=== PATIENT | male | born 1980 | race Caucasian/White ===

== ENCOUNTER 2016-12-31 00:16 | Emergency (ER) | payer OTHER, SELFPAY ==
[2016-12-31 01:27] LABS: Troponin I 0.048 ng/mL (< 0.028)
[2016-12-31 01:58] LABS: #Basophils 0.1 thou/uL (0.0-0.2); #Eosinphils 0.1 thou/uL (0.0-0.7); #Monocytes 0.7 thou/uL (0.11-0.59); #Neutrophils 6.7 thou/uL (1.40-6.50); %Basophils 0.8 % (0.0-1.0); %Eosinophils 0.8 % (0.0-10.0); %Lymphocytes 21.1 % (21.0-51.0); %Monocytes 7.5 % (0.0-10.0); Hematocrit 46.7 % (42.0-52.0); White Blood Cell (WBC) Count 9.6 thou/uL (4.8-10.8)
[2016-12-31 02:00] LABS: ALT (SGPT) 33 U/L (8-55); AST (SGOT) 32 U/L (5-34); Alkaline Phosphatase 61 U/L (40-150); Anion Gap 16 mmol/L (10-20); BUN (Urea Nitrogen) 11 mg/dL (8.9-20.6); Bilirubin, Total 0.5 mg/dL (0.2-1.2); Calc. Creatinine Clearance 0 mL/min (70-130); Calcium 9.7 mg/dL (7.8-10.44); Carbon Dioxide 25 mmol/L (22-29); Chloride 98 mmol/L (98-107); Estimated GFR-MDRD 62; Globulin 3.8 g/dL (2.4-3.5); Protein, Total 8.5 g/dL (6.0-8.3)
[2016-12-31 04:22] LABS: Troponin I 0.038 ng/mL (< 0.028)
--- NOTE | 2016-12-31 08:15 | RAD ---
AP VIEW CHEST: HISTORY: Chest pain. FINDINGS: AP view chest is obtained on 12/31/16. Comparison is made to previous exam from 04/12/16. AP view chest demonstrates the lungs to be well aerated. No evidence of active intrathoracic diseas e is seen. No evidence of effusions, pneumonia, or pneumothorax is seen. IMPRESSION: Unremarkable AP view chest. POS: [facility]
--- NOTE | 2017-01-04 14:20 | EKG ---
Test Reason : Blood Pressure : / mmHG Vent. Rate : 097 BPM Atrial Rate : 097 BPM P-R Int : 154 ms QRS Dur : 084 ms QT Int : 380 ms P-R-T Axes : 051 022 014 degrees QTc Int : 482 ms Normal sinus rhythm Biatrial enlargement Septal infarct , age undetermined No STEMI Abnormal ECG Confirmed by ANA CRISTINA BASS, TEDDY Padilla ([id number]), avid editor GABRIEL HARRIS ([id number]) on 01/04/2017 2:19:55 PM Referred By: Confirmed By:TEDDY DE LA PAZ MD
== END 2016-12-31 05:30 | disposition home or self-care (01) ==
LOC: ERS 00:16
DX: F14.10 Cocaine abuse, uncomplicated (principal); R07.9 Chest pain, unspecified; J45.909 Unspecified asthma, uncomplicated; F17.200 Nicotine dependence, unspecified, uncomplicated
CPT/HCPCS: 36415; 71010; 80053; 82553; 84484; 85025; 93005; 96360

== ENCOUNTER 2017-01-04 13:13 | Inpatient (IN) | payer BC, SELFPAY ==
[2017-01-04 13:39] LABS: #Basophils 0.1 thou/uL (0.0-0.2); #Eosinphils 0.1 thou/uL (0.0-0.7); #Lymphocytes 2.1 thou/uL (1.20-3.40); #Monocytes 0.8 thou/uL (0.11-0.59); #Neutrophils 9.8 thou/uL (1.40-6.50); %Basophils 0.7 % (0.0-1.0); %Eosinophils 0.6 % (0.0-10.0); %Lymphocytes 16.1 % (21.0-51.0); %Monocytes 6.5 % (0.0-10.0); Hematocrit 43.1 % (42.0-52.0); Mean Platelet Volume 6.3 fL (7.4-10.4); Red Blood Cell (RBC) Count 4.74 mill/uL (4.70-6.10); White Blood Cell (WBC) Count 12.9 thou/uL (4.8-10.8)
[2017-01-04 14:11] LABS: Troponin I 0.042 ng/mL (< 0.028)
[2017-01-04 14:14] LABS: ALT (SGPT) 29 U/L (8-55); AST (SGOT) 30 U/L (5-34); Alkaline Phosphatase 58 U/L (40-150); Anion Gap 15 mmol/L (10-20); BUN (Urea Nitrogen) 10 mg/dL (8.9-20.6); Bilirubin, Total 0.4 mg/dL (0.2-1.2); CK (CPK) 1049 U/L (30-200); Calc. Creatinine Clearance 0 mL/min (70-130); Calcium 9.7 mg/dL (7.8-10.44); Carbon Dioxide 24 mmol/L (22-29); Chloride 98 mmol/L (98-107); Estimated GFR-MDRD 68; Globulin 3.4 g/dL (2.4-3.5); Lipase 54 U/L (8-78); Protein, Total 7.7 g/dL (6.0-8.3)
[2017-01-04] MEDS ORDERED: Lorazepam 2 MG/ML VIAL ONE (14:21)
[2017-01-04] MEDS ORDERED: Oxymetazoline HCl 0.05% ( 15 ML ) ONE (14:33)
[2017-01-04 14:45] LABS: Magnesium 1.8 mg/dL (1.6-2.6); Phosphorus 2.6 mg/dL (2.3-4.7)
[2017-01-04] MEDS ORDERED: Nitroglycerin 2% Ointment 1 INCH/1 GM Packet ONE (14:56)
--- NOTE | 2017-01-04 15:11 | RAD ---
SINGLE VIEW OF THE CHEST: COMPARISON: 12/31/16. HISTORY: Chest pain. Cocaine use last night. FINDINGS: Single view of the chest shows a normal sized cardiomediastinal silhouette. There is no evidence of consolidation, mass, or pleural effusion. The bones are unremarkable. IMPRESSION: No evidence of acute cardiopulmonary disease. POS: [facility]
[2017-01-04 15:18] LABS: Bilirubin Negative (Negative); Blood, Urine Negative (Negative); Glucose, Urine (Dipstick) Negative (Negative); Ketone, Urine Negative (Negative); Nitrite Negative (Negative); Protein, Urine (Dipstick) Negative (Neg-Trace); Urobilinogen 0.2 mg/dL (0.2-1.0)
[2017-01-04 15:27] LABS: Amphetamine Not Detected (NotDetected); Methadone Not Detected (NotDetected); Methamphetamine Not Detected (NotDetected)
[2017-01-04 15:57] VITALS: BMI 31.6
[2017-01-04] MEDS ORDERED: Senokot 8.6 MG TAB PO PRN (16:15)
[2017-01-04] MEDS ORDERED: Nitroglycerin 0.4 MG TAB (25 Tab Bottle) PO PRN (16:15)
[2017-01-04] MEDS ORDERED: Ondansetron HCl/PF 4 MG/2 ML Vial IVP PRN (16:15)
[2017-01-04] MEDS ORDERED: Sodium Chloride 0.9% 1,000 ML IV SCH (16:15)
[2017-01-04] MEDS ORDERED: Calcium Carbonate 500 MG ChewTAB PO PRN (16:15)
[2017-01-04] MEDS ORDERED: Acetaminophen 325 MG TAB PO PRN (16:15)
[2017-01-04] MEDS ORDERED: Milk Of Magnesia 30 ML UDCUP PO PRN (16:15)
[2017-01-04] MEDS ORDERED: Aspirin 325 MG TAB PO SCH (16:15)
[2017-01-04] MEDS ORDERED: Ondansetron ODT 4 MG TAB PO PRN (16:15)
[2017-01-04] MEDS ORDERED: cloNIDine HCl 0.1 MG TAB PO PRN (16:19)
[2017-01-04] MEDS ORDERED: Lorazepam 1 MG TAB PO SCH ×2 (16:30→21:00)
[2017-01-04] MEDS ORDERED: Sodium Chloride 0.65% Nasal 44 ML BOT EA NARE PRN (16:40)
[2017-01-04 17:06] LABS: Troponin I 0.063 ng/mL (< 0.028)
--- NOTE | 2017-01-04 18:44 | HP ---
DATE OF ADMISSION: 01/04/2017 PRIMARY CARE PHYSICIAN: Sonny Villa M.D. REASON FOR COMPLAINT: Chest discomfort. HISTORY OF PRESENT ILLNESS: Patient is a 36-year-old male who presented to the emergency room with above complaints. Over the last 24-48 hours, patient has intermittent chest discomfort associated with diaphoresis and dizziness. He felt lightheaded without any syncope. He also had some palpitations. The patient admitted using cocaine last night. His chest pain got worse today for which he was brought to the emergency room for evaluation. In the emergency room, his initial vital signs showed temperature 98.4, respirations 20, pulse of 97, blood pressure of 167/104 with O2 saturation of 96 % on room air. His initial EKG showed sinus rhythm without significant ST-T wave changes. His troponins were in the indeterminate range. He received nitro patch with Ativan and IV fluids in the emergency room. PAST MEDICAL HISTORY: 1. History of renal cancer status post partial nephrectomy in 2016. 2. Chronic low back pain. 3. History of cardiac murmur. 4. Asthma. PAST SURGICAL HISTORY: 1. Tonsillectomy. 2. Partial right nephrectomy. ALLERGIES: Patient denies any drug allergies. CURRENT HOME MEDICATIONS: Albuterol inhaler as needed, Afrin nasal sprays as needed. SOCIAL HISTORY: Patient currently lives at home with his family. He currently uses vapor tobacco. Drinks alcohol socially. Abuses cocaine 2 times a month. FAMILY HISTORY: Negative for premature coronary artery disease. REVIEW OF SYSTEMS: The following complete review of systems was negative, unless otherwise mentioned in the HPI or below: Constitutional: Weight loss or gain, ability to conduct usual activities. Skin: Rash, itching. Eyes: Double vision, pain. ENT/Mouth: Nose bleeding, neck stiffness, pain, tenderness. Cardiovascular: Palpitations, dyspnea on exertion, orthopnea. Respiratory: Shortness of breath, wheezing, cough, hemoptysis, fever or night sweats. Gastrointestinal: Poor appetite, abdominal pain, heartburn, nausea, vomiting, constipation, or diarrhea. Genitourinary: Urgency, frequency, dysuria, nocturia. Musculoskeletal: Pain, swelling. Neurologic/Psychiatric: Anxiety, depression. Allergy/Immunologic: Skin rash, bleeding tendency. PHYSICAL EXAMINATION: VITAL SIGNS: As discussed above. GENERAL: A 36-year-old male, somewhat anxious appearing, in no apparent distress. HEENT: Head is atraumatic, normocephalic, sclerae are anicteric, dry mucous membranes. No oral lesion. NECK: Supple, no JVD appreciated. No carotid bruit. LUNGS: Clear to auscultation bilaterally. HEART: S1 and S2 present. Regular rate and rhythm. No rubs or gallops appreciated, 2/6 systolic murmur over the mitral area. ABDOMEN: Soft, nontender, bowel sounds present. EXTREMITIES: No edema or calf tenderness. NEUROLOGIC: Grossly nonfocal, moves all four extremities. PSYCHIATRY: Alert, awake, oriented x3. SKIN: Warm and dry. LYMPH NODES: No palpable lymph nodes in the neck. PERIPHERAL VASCULAR: Radial pulses palpable bilaterally. MUSCULOSKELETAL: No joint swelling or tenderness. LABORATORY DATA AND X-RAY FINDINGS: 1. CBC showed WBC of 12.9 with hemoglobin 14.4. 2. Chemistries showed sodium 133, potassium 3.9, chloride 98, bicarbonate 24, BUN of 10, creatinine 1.22. 3. CK was 1049. 4. CK-MB 7.9 with troponin of 0.042. Urine drug screen was positive for cocaine. Urinalysis was negative. 5. Chest x-ray by my review was negative for infiltrate. 6. EKG by my review as discussed above. IMPRESSION: 1. Chest discomfort secondary to cocaine abuse. 2. Elevated troponin secondary to #1. 3. Abdominal rhabdomyolysis secondary to polysubstance abuse. 4. Tobacco dependence. 5. Obesity with a body mass index of 31.6 6. Mild hyponatremia, probably secondary to dehydration. 7. Chronic low back pain. Plan of care was discussed with the patient and he stated understanding. PLAN: The patient will be monitored on the telemetry unit. We will continue IV fluids with nitro patch. We will add Ativan 3 times daily scheduled for now. Nebulizer treatment as needed. Consult Cardiology in a.m. We will repeat CK in a.m. Continue his pulse oximetry while on Ativan. No statins due to elevated CK. Plan of care was discussed with the patient. He stated understanding. MTDD
[2017-01-04 19:45] LABS: Troponin I 0.056 ng/mL (< 0.028)
[2017-01-04] MEDS ORDERED: Nitroglycerin 2% Ointment 1 INCH/1 GM Packet TOP SCH (21:00)
[2017-01-04] MEDS: Docusate 100 MG CAP PO SCH (22:38)
[2017-01-04] MEDS: Famotidine 20 MG TAB PO SCH (22:38)
[2017-01-04] MEDS: Sodium Chloride 0.9% 1,000 ML IV SCH (22:47)
[2017-01-04] MEDS: Nitroglycerin 2% Ointment 1 INCH/1 GM Packet TOP SCH (23:01)
[2017-01-04] MEDS: Ipratropium Bromide 0.03% Nasal Inhaler 30 ml Bottle EA NARE SCH (23:02)
[2017-01-05] MEDS: Sodium Chloride 0.9% 1,000 ML IV SCH ×3 (01:36→16:23)
[2017-01-05 05:53] LABS: #Basophils 0.1 thou/uL (0.0-0.2); #Eosinphils 0.3 thou/uL (0.0-0.7); #Lymphocytes 3.1 thou/uL (1.20-3.40); #Monocytes 0.9 thou/uL (0.11-0.59); #Neutrophils 3.3 thou/uL (1.40-6.50); %Basophils 1.1 % (0.0-1.0); %Eosinophils 4.1 % (0.0-10.0); %Lymphocytes 40.2 % (21.0-51.0); %Monocytes 12.1 % (0.0-10.0); Hematocrit 38.8 % (42.0-52.0); Mean Platelet Volume 6.8 fL (7.4-10.4); Red Blood Cell (RBC) Count 4.17 mill/uL (4.70-6.10); White Blood Cell (WBC) Count 7.7 thou/uL (4.8-10.8)
[2017-01-05 06:11] LABS: Anion Gap 10 mmol/L (10-20); BUN (Urea Nitrogen) 9 mg/dL (8.9-20.6); CK (CPK) 673 U/L (30-200); Calc. Creatinine Clearance 150 mL/min (70-130); Calcium 8.9 mg/dL (7.8-10.44); Carbon Dioxide 26 mmol/L (22-29); Cholesterol 187 mg/dl (< 200 Desired); Estimated GFR-MDRD 74; LDL Cholesterol, Calculated 117 mg/dL
[2017-01-05 06:14] LABS: Chloride 109 mmol/L (98-107)
[2017-01-05] MEDS: Nitroglycerin 2% Ointment 1 INCH/1 GM Packet TOP SCH (06:14)
[2017-01-05] MEDS ORDERED: Lorazepam 0.5 MG TAB PO PRN (06:47)
[2017-01-05] MEDS: Aspirin 325 MG TAB PO SCH (08:14)
[2017-01-05] MEDS: Famotidine 20 MG TAB PO SCH ×2 (08:14→20:36)
[2017-01-05] MEDS: Docusate 100 MG CAP PO SCH ×2 (08:15→20:33)
[2017-01-05] MEDS ORDERED: Fluticasone Propionate Nasal Spray 16 gm Bottle NASAL SCH (09:00)
--- NOTE | 2017-01-05 12:01 | PDOC.PN ---
- Subjective Encounter Start Date: 01/05/17 Encounter Start Time: 10:00 Patient seen and examined. No new complaints. No overnight events - Objective Resuscitation Status: Resuscitation Status FULL:Full Resuscitation MAR Reviewed: Yes Vital Signs & Weight: Vital Signs (12 hours) Temp Pulse Resp BP BP Pulse Ox 01/05/17 11:41 97.9 F 77 17 121/59 L 92 L 01/05/17 08:00 97.7 F 76 16 110/51 L 92 L 01/05/17 04:00 97.4 F L 67 18 132/59 L 90 L 01/05/17 00:00 98.0 F 69 20 107/54 L 92 L Weight Weight 254 lb 11.2 oz I&O: 01/04/17 01/05/17 01/06/17 06:59 06:59 06:59 Intake Total 2690 Output Total 2300 Balance 390 Result Diagrams: 01/05/17 05:24 01/05/17 05:24 EKG Reviewed by me: Yes (Tele SR) Phys Exam - Physical Examination Constitutional: NAD Respiratory: no wheezing, no rhonchi Cardiovascular: RRR, no rub Gastrointestinal: soft, non-tender, positive bowel sounds Musculoskeletal: no edema Neurological: moves all 4 limbs Dx/Plan - Plan IMPRESSION: 1. Chest discomfort secondary to cocaine abuse. 2. Elevated troponin secondary to #1. 3. Abdominal rhabdomyolysis secondary to polysubstance abuse. 4. Tobacco dependence. 5. Obesity with a body mass index of 31.6 6. Mild hyponatremia, probably secondary to dehydration. 7. Chronic low back pain. PLAN: * DC NTG patch * Cont ASA * No Statins due to elevated CK * Reduce IVF to 100 ml/hr * Await Cardio input * Cont tele monitoring * Laboratory Tests 01/04/17 01/04/17 01/05/17 15:00 19:09 05:24 Creatine Kinase 673 H Troponin I 0.056 H Triglycerides 168 H Cholesterol 187 LDL Cholesterol, Calc 117 HDL Cholesterol 36 U Cocaine Metab Screen Detected H Review of Systems - Review of Systems Constitutional: negative: Fever, Chills, Sweats, Weakness, Malaise, Other Respiratory: negative: Cough, Dry, Shortness of Breath, Hemoptysis, SOB with Excertion, Pleuritic Pain, Sputum, Wheezing Cardiovascular: negative: Chest Pain, Palpitations, Orthopnea, Paroxysmal Noc. Dyspnea, Edema, Light Headedness, Other Gastrointestinal: negative: Nausea, Vomiting, Abdominal Pain, Diarrhea, Constipation, Melena, Hematochezia, Other Genitourinary: negative: Dysuria, Frequency, Incontinence, Hematuria, Retention , Other Neurological: negative: Weakness, Numbness, Incoordination, Change in Speech, Confusion, Seizures, Other - Medications/Allergies Allergies/Adverse Reactions: Allergies Allergy/AdvReac Type Severity Reaction Status Date / Time No Known Allergies Allergy Verified 01/04/17 16:11 Medications: Current Medications Acetaminophen (Tylenol) 650 mg PO Q4H PRN PRN Reason: Headache/Fever or Pain Albuterol/Ipratropium (Duoneb) 3 ml NEB [id number] PRN PRN Reason: SOB &/or Wheezing Last Admin: 01/04/17 17:31 Dose: 3 ml Aspirin (Aspirin) 325 mg PO DAILY [facility] Last Admin: 01/05/17 08:14 Dose: 325 mg Calcium Carbonate (Tums) 1,000 mg PO Q4H PRN PRN Reason: Heartburn or Indigestion Clonidine HCl (Catapres) 0.1 mg PO Q4H PRN PRN Reason: Systolic BP > 180/ DBP >100 Docusate Sodium (Colace) 100 mg PO BID [facility] Last Admin: 01/05/17 08:15 Dose: 100 mg Famotidine (Pepcid) 20 mg PO BID [facility] Last Admin: 01/05/17 08:14 Dose: 20 mg Sodium Chloride (Normal Saline 0.9%) 1,000 mls @ 100 mls/hr IV .Q10H [facility] Ipratropium [place] (Atrovent 0.03%) 0 ml EA NARE TID [facility] Last Admin: 01/04/17 23:02 Dose: 2 spr Lorazepam (Ativan) 0.5 mg PO Q6H PRN PRN Reason: Anxiety Magnesium Hydroxide (Milk Of Magnesium) 30 ml PO DAILYPRN PRN PRN Reason: Constipation Nitroglycerin (Nitrostat) 0.4 mg PO Q5MIN PRN PRN Reason: Chest Pain Ondansetron HCl (Zofran Odt) 4 mg PO Q6H PRN PRN Reason: Nausea/Vomiting Ondansetron HCl (Zofran) 4 mg IVP Q6H PRN PRN Reason: Nausea/Vomiting Senna (Senokot) 2 tab PO HSPRN PRN PRN Reason: Constipation Sodium Chloride (Flush - Normal Saline) 10 ml IVF PRN PRN PRN Reason: Saline Flush Last Admin: 01/04/17 22:48 Dose: 10 ml Sodium Chloride ([place] Nasal [place] 0.65%) 0 ml EA NARE TID PRN PRN Reason: Nasal Congestion
[2017-01-05] MEDS: Ipratropium Bromide 0.03% Nasal Inhaler 30 ml Bottle EA NARE SCH ×2 (19:57→20:37)
[2017-01-05] MEDS ORDERED: Enoxaparin Sodium 40 MG/0.4 ML SYRINGE SC SCH (21:00)
--- NOTE | 2017-01-05 23:33 | CON ---
DATE OF CONSULTATION: 01/05/2017 REFERRING PHYSICIAN: Jesus Griggs M.D. REASON FOR CONSULTATION: Chest pain. PRIMARY CARE PHYSICIAN: Dr. Villa. HISTORY OF PRESENT ILLNESS: Mr. Stephens is a 36-year-old gentleman, presenting to the emergency department complaining of chest discomfort. Chest discomfort occurred during the time th at he was using cocaine, which he does on a pretty routine basis. He reports using about 2 grams ea ch day and this is about the third day that he has been using. He felt associated lightheadedness a nd dizziness, but no overt syncope. His symptoms have resolved and he denies any exertional symptom s currently. Serial cardiac enzymes showed elevated total CK with increased CK-MB fraction and indeterminate trop onin elevations. PAST MEDICAL HISTORY: 1. Renal cell carcinoma, status post partial nephrectomy. 2. Chronic low back pain. 3. Asthma. PAST SURGICAL HISTORY: 1. Partial right nephrectomy. 2. Tonsillectomy. ALLERGIES: No known drug allergies. SOCIAL HISTORY: He lives with his family. He uses tobacco through vapor inhaler. He drinks alcoho l socially. He does use cocaine regularly, reporting 2 times a month, but when he does use, he uses 2+ grams each time. FAMILY HISTORY: Negative with respect to premature atherosclerosis. CURRENT MEDICATIONS: Albuterol as needed. REVIEW OF SYSTEMS: As per history of present illness. Remainder of 12 system review is negative. PHYSICAL EXAMINATION: VITAL SIGNS: Blood pressure 121/59, pulse 77 and regular, respiratory rate 17 and nonlabored, tempe rature 97.9, oxygen saturation 92% on room air. GENERAL: This is a well-developed, well-nourished 36-year-old gentleman, in no acute dist ress. He is alert and oriented x4. He answers questions appropriately. HEENT: The head was atraumatic, normocephalic. Pupils are equally round and reactive. Sclerae and conjunctivae are clear. There are no oral lesions. NECK: Supple, no JVD, thyromegaly, carotid bruits or lymphadenopathy appreciated. Trachea is midli ne. There is no nuchal rigidity. CHEST: Symmetrical inspiration and expiration. HEART: Regular rate and rhythm with a soft 1/6 systolic murmur at the apex of the right and left ax illa. PMI is nondisplaced, not enlarged. LUNGS: Clear to auscultation in all plata. No adventitious sounds appreciated. ABDOMEN: Soft, nontender, nondistended without mass or organomegaly. Bowel sounds are present in a ll 4 quadrants. No flank bruits auscultated. EXTREMITIES: 2+ pulses noted bilaterally. Upper and lower extremity strength 5/5 bilaterally. The re is no clubbing, cyanosis or edema. NEUROLOGIC: Grossly intact with no focal motor deficits appreciated. DATABASE: EKG reveals sinus rhythm with normal axis and intervals. LABORATORY DATA: CBC reveals a white count of 7, H\T\H of 12 and 38, platelet count 274,000. Diffe rential white blood cells normal. Red cell indices normocytic. Chemistries: Electrolytes are normal. BUN and creatinine of 9 and 1.1, GFR is estimated at 74. LF Ts are within normal limits. Total CK 104.9. CK-MB fraction 7.9. Indeterminate troponin elevation s with peak of 0.063, trending downward. His cholesterol is essentially normal. Toxicology screen does show positive cocaine metabolites. ASSESSMENT: 1. Active cocaine use/abuse. 2. Chest pain syndrome secondary to #1. 3. Elevated cardiac enzymes secondary to #1. RECOMMENDATIONS: 1. From a cardiac standpoint, he is stable and chest pain free. There is no overt indication for i nvasive or interventional evaluation at this time. He is symptom free currently and his elevated ca rdiac enzymes are likely secondary to intense vasospasm from high level use of cocaine. I have coun seled him on the importance of cessation of this very dangerous habit and he wishes to get some help with drug rehabilitation. 2. I would recommend case workers evaluate for the possibility of transfer to an inpatient unit due to the high level of usage that he volunteers on a regular basis. I appreciate the opportunity to participate.
[2017-01-05] MEDS ORDERED: traMADol HCl 50 MG TAB PO PRN (23:35)
[2017-01-06] MEDS: Sodium Chloride 0.9% 1,000 ML IV SCH ×2 (04:16→09:42)
[2017-01-06 05:54] LABS: Anion Gap 11 mmol/L (10-20); BUN (Urea Nitrogen) 7 mg/dL (8.9-20.6); CK (CPK) 477 U/L (30-200); Calc. Creatinine Clearance 159 mL/min (70-130); Calcium 9.3 mg/dL (7.8-10.44); Carbon Dioxide 24 mmol/L (22-29); Chloride 108 mmol/L (98-107); Estimated GFR-MDRD 79
[2017-01-06] MEDS: Docusate 100 MG CAP PO SCH (09:43)
[2017-01-06] MEDS: Famotidine 20 MG TAB PO SCH (09:43)
[2017-01-06] MEDS: Aspirin 325 MG TAB PO SCH (09:43)
--- NOTE | 2017-01-06 12:12 | DIS ---
DATE OF DISCHARGE: 01/06/2017 DISCHARGE DISPOSITION: Home. FOLLOWUP: 1. Follow up with primary care physician, Dr. Sonny Villa in 1 week. 2. Follow up with Cardiology, Dr. Pankaj Chavarria in 2-3 weeks. ALLERGIES: No known drug allergies. DISCHARGE MEDICATIONS: Aspirin 81 mg daily, albuterol inhaler as needed. The patient was seen and examined on the day of discharge. Denies any new complaints. No chest diane n, shortness of breath, palpitations. BRIEF HOSPITAL COURSE: The patient is a 36-year-old white male, who presented to the emergency room with chest discomfort. Please refer to the history and physical dated 01/04/2017 for further detai ls. The patient was admitted to the hospital with a diagnosis of chest discomfort, rule out acute trujillo ry syndrome. His maximum troponin was 0.063. His initial CK was 1049. Urine drug screen was posit aleks for cocaine. He was seen by Cardiology, Dr. Chavarria. He was placed on aspirin with nitro patch wi th benzodiazepines and IV fluids. An echocardiogram has been done and report is pending at this lizy e. The patient has been cleared by Cardiology for discharge. FINAL DIAGNOSES: 1. Chest discomfort, probably secondary to vasospasm from cocaine. 2. Elevated troponin secondary to #1. 3. Rhabdomyolysis secondary to polysubstance abuse. His CK today is 477. Repeat CK in 1 week is r ecommended. Primary care physician is advised to follow. 4. Dyslipidemia. Triglyceride was 168 with cholesterol 187, LDL 117 and HDL of 36. Lifestyle elisa fication was emphasized. No statins due to elevated CK. 5. Obesity with a BMI of 31.6. 6. Chronic low back pain. 7. Mild hyponatremia secondary to dehydration on admission, resolved. Plan of care was discussed with the patient, he stated understanding.
[2017-01-06] MEDS ORDERED: Mag-Al Plus 1200 MG/1200 MG/120 MG/30 ML UDCUP PO PRN (12:17)
[2017-01-06] MEDS ORDERED: Mag-Al 1200 mg/1200 mg/30 ML UDCUP PO PRN (12:17)
--- NOTE | 2017-01-06 12:21 | PDOC.PN ---
- Subjective Encounter Start Date: 01/06/17 Encounter Start Time: 12:19 Patient seen and examined. No new complaints. No overnight events. Feels gen weak - Objective Resuscitation Status: Resuscitation Status FULL:Full Resuscitation MAR Reviewed: Yes Vital Signs & Weight: Vital Signs (12 hours) Temp Pulse Resp BP Pulse Ox 01/06/17 08:07 96.1 F L 62 18 114/57 L 97 01/06/17 04:00 98.0 F 64 18 126/63 96 Weight Weight 254 lb 11.2 oz I&O: 01/05/17 01/06/17 01/07/17 06:59 06:59 06:59 Intake Total 2690 1700 Output Total 2300 2750 Balance 390 -1050 Result Diagrams: 01/05/17 05:24 01/06/17 04:56 EKG Reviewed by me: Yes (Tele SR) Phys Exam - Physical Examination Constitutional: NAD Respiratory: no wheezing, no rhonchi Cardiovascular: RRR, no rub Gastrointestinal: soft, non-tender, positive bowel sounds Musculoskeletal: no edema Neurological: non-focal, moves all 4 limbs Dx/Plan - Plan IMPRESSION: 1. Chest discomfort secondary to cocaine abuse. 2. Elevated troponin secondary to #1. 3. Abdominal rhabdomyolysis secondary to polysubstance abuse. 4. Tobacco dependence. 5. Obesity with a body mass index of 31.6 6. Mild hyponatremia, probably secondary to dehydration. 7. Chronic low back pain. PLAN: * Will d/w betting agency manager to assist with placement in rehab * Cont ASA * No Statins due to elevated CK * DC IVF * Cardio following * Cont tele monitoring Review of Systems - Review of Systems ENT: negative: Ear Pain, Ear Discharge, Nose Pain, Nose Discharge, Nose Congestion, Mouth Pain, Mouth Swelling, Throat Pain, Throat Swelling, Other Respiratory: negative: Cough, Dry, Shortness of Breath, Hemoptysis, SOB with Excertion, Pleuritic Pain, Sputum, Wheezing Gastrointestinal: negative: Nausea, Vomiting, Abdominal Pain, Diarrhea, Constipation, Melena, Hematochezia, Other - Medications/Allergies Allergies/Adverse Reactions: Allergies Allergy/AdvReac Type Severity Reaction Status Date / Time No Known Allergies Allergy Verified 01/04/17 16:11 Medications: Current Medications Acetaminophen (Tylenol) 650 mg PO Q4H PRN PRN Reason: Headache/Fever or Pain Al Hydroxide/Mg Hydroxide (Maalox) 30 ml PO Q6H PRN PRN Reason: Heartburn or Indigestion Al Hydroxide/Mg Hydroxide (Maalox Plus) 30 ml PO DAILY PRN PRN Reason: Dyspepsia Albuterol/Ipratropium (Duoneb) 3 ml NEB [id number] PRN PRN Reason: SOB &/or Wheezing Last Admin: 01/04/17 17:31 Dose: 3 ml Aspirin (Aspirin) 325 mg PO DAILY [facility] Last Admin: 01/06/17 09:43 Dose: 325 mg Calcium Carbonate (Tums) 1,000 mg PO Q4H PRN PRN Reason: Heartburn or Indigestion Last Admin: 01/06/17 12:02 Dose: 1,000 mg Clonidine HCl (Catapres) 0.1 mg PO Q4H PRN PRN Reason: Systolic BP > 180/ DBP >100 Docusate Sodium (Colace) 100 mg PO BID [facility] Last Admin: 01/06/17 09:43 Dose: 100 mg Enoxaparin Sodium (Lovenox) 40 mg SC 2100 [facility] Last Admin: 01/05/17 20:34 Dose: 40 mg Famotidine (Pepcid) 20 mg PO BID [facility] Last Admin: 01/06/17 09:43 Dose: 20 mg Sodium Chloride (Normal Saline 0.9%) 1,000 mls @ 100 mls/hr IV .Q10H [facility] Last Admin: 01/06/17 09:42 Dose: 1,000 mls Ipratropium [place] (Atrovent 0.03%) 0 ml EA NARE TID [facility] Last Admin: 01/05/17 20:37 Dose: 2 spr Lorazepam (Ativan) 0.5 mg PO Q6H PRN PRN Reason: Anxiety Last Admin: 01/06/17 03:55 Dose: 0.5 mg Magnesium Hydroxide (Milk Of Magnesium) 30 ml PO DAILYPRN PRN PRN Reason: Constipation Nitroglycerin (Nitrostat) 0.4 mg PO Q5MIN PRN PRN Reason: Chest Pain Last Admin: 01/06/17 03:55 Dose: 0.4 mg Ondansetron HCl (Zofran Odt) 4 mg PO Q6H PRN PRN Reason: Nausea/Vomiting Ondansetron HCl (Zofran) 4 mg IVP Q6H PRN PRN Reason: Nausea/Vomiting Senna (Senokot) 2 tab PO HSPRN PRN PRN Reason: Constipation Sodium Chloride (Flush - Normal Saline) 10 ml IVF PRN PRN PRN Reason: Saline Flush Last Admin: 01/04/17 22:48 Dose: 10 ml Sodium Chloride ([place] Nasal [place] 0.65%) 0 ml EA NARE TID PRN PRN Reason: Nasal Congestion Tramadol HCl (Ultram) 50 mg PO Q6H PRN PRN Reason: Pain >3 Last Admin: 01/05/17 23:55 Dose: 50 mg
[2017-01-06 16:29] VITALS: BP 126/68; TEMP 98.8
== END 2017-01-06 17:13 | disposition home or self-care (01) | DRG 897 ==
LOC: ERS 13:13 → 2NO 14:37
PROVIDERS: ADMIT Internal Medicine; ATTEND Internal Medicine
DX: F14.10 Cocaine abuse, uncomplicated (principal); M62.82 Rhabdomyolysis; E87.1 Hypo-osmolality and hyponatremia; R07.9 Chest pain, unspecified; E66.9 Obesity, unspecified; R79.89 Other specified abnormal findings of blood chemistry; E78.5 Hyperlipidemia, unspecified; E86.0 Dehydration; M54.5 Low back pain; G89.29 Other chronic pain; I73.89 Other specified peripheral vascular diseases; F19.10 Other psychoactive substance abuse, uncomplicated; F17.210 Nicotine dependence, cigarettes, uncomplicated; Z90.5 Acquired absence of kidney; Z85.528 Personal history of other malignant neoplasm of kidney; Z68.31 Body mass index [BMI] 31.0-31.9, adult
CPT/HCPCS: 36415; 71010; 80048; 80053; 80061; 80306; 81003; 82550; 82553; 83690; 83735; 84100; 84443; 84484; 85025; 90471; 90732; 93005; 93306; 94640; 94760; 96360; 96372; G0009; J1650; J2060; J7620

== ENCOUNTER 2017-03-16 17:47 | Emergency (ER) | payer BC ==
[2017-03-16 18:22] LABS: #Basophils 0.1 thou/uL (0.0-0.2); #Eosinphils 0.1 thou/uL (0.0-0.7); #Lymphocytes 2.4 thou/uL (1.20-3.40); #Monocytes 0.9 thou/uL (0.11-0.59); #Neutrophils 7.7 thou/uL (1.40-6.50); %Basophils 0.7 % (0.0-1.0); %Eosinophils 0.5 % (0.0-10.0); %Lymphocytes 21.8 % (21.0-51.0); %Monocytes 7.9 % (0.0-10.0); Hematocrit 50.2 % (42.0-52.0); Mean Platelet Volume 6.2 fL (7.4-10.4); Red Blood Cell (RBC) Count 5.56 mill/uL (4.70-6.10); White Blood Cell (WBC) Count 11.1 thou/uL (4.8-10.8)
[2017-03-16 18:40] LABS: Bilirubin Negative (Negative); Blood, Urine Negative (Negative); Glucose, Urine (Dipstick) Negative (Negative); Ketone, Urine Negative (Negative); Nitrite Negative (Negative); Protein, Urine (Dipstick) Negative (Neg-Trace); Urobilinogen 0.2 mg/dL (0.2-1.0)
[2017-03-16 18:47] LABS: ALT (SGPT) 26 U/L (8-55); AST (SGOT) 27 U/L (5-34); Alkaline Phosphatase 64 U/L (40-150); Anion Gap 15 mmol/L (10-20); BUN (Urea Nitrogen) 8 mg/dL (8.9-20.6); Bilirubin, Total 0.7 mg/dL (0.2-1.2); Calc. Creatinine Clearance 0 mL/min (70-130); Calcium 9.9 mg/dL (7.8-10.44); Carbon Dioxide 23 mmol/L (22-29); Chloride 100 mmol/L (98-107); Estimated GFR-MDRD 86; Globulin 3.9 g/dL (2.4-3.5); Protein, Total 8.5 g/dL (6.0-8.3)
== END 2017-03-16 20:43 | disposition home or self-care (01) ==
LOC: ERS 17:47
DX: F14.10 Cocaine abuse, uncomplicated (principal); H81.13 Benign paroxysmal vertigo, bilateral; F17.210 Nicotine dependence, cigarettes, uncomplicated; J45.909 Unspecified asthma, uncomplicated
CPT/HCPCS: 36415; 80053; 81003; 85025; 93005

== ENCOUNTER 2017-03-27 19:29 | Emergency (ER) | payer BC ==
[2017-03-27 20:03] LABS: #Basophils 0.1 thou/uL (0.0-0.2); #Lymphocytes 2.3 thou/uL (1.20-3.40); #Monocytes 0.7 thou/uL (0.11-0.59); #Neutrophils 4.8 thou/uL (1.40-6.50); %Basophils 0.8 % (0.0-1.0); %Eosinophils 0.5 % (0.0-10.0); %Lymphocytes 29.6 % (21.0-51.0); %Monocytes 8.6 % (0.0-10.0); Hematocrit 45.8 % (42.0-52.0); Mean Platelet Volume 6.3 fL (7.4-10.4); White Blood Cell (WBC) Count 7.9 thou/uL (4.8-10.8)
--- NOTE | 2017-03-27 20:13 | RAD ---
PORTABLE CHEST 03/27/17 PROVIDED CLINICAL HISTORY: Chest pain. FINDINGS: Comparison made with the study dated 01/04/17. The cardiac and mediastinal silhouette is unchanged in appearance. No focal consolidation, pleural fl uid or pneumothorax apparent. IMPRESSION: No evidence for an acute cardiopulmonary process. POS: [facility]
[2017-03-27] MEDS ORDERED: Nitroglycerin 2% Ointment 1 INCH/1 GM Packet ONE (20:17)
[2017-03-27 20:24] LABS: ALT (SGPT) 26 U/L (8-55); AST (SGOT) 23 U/L (5-34); Alkaline Phosphatase 60 U/L (40-150); Anion Gap 15 mmol/L (10-20); BUN (Urea Nitrogen) 4 mg/dL (8.9-20.6); Bilirubin, Total 0.6 mg/dL (0.2-1.2); CK (CPK) 325 U/L (30-200); Calc. Creatinine Clearance 0 mL/min (70-130); Calcium 9.4 mg/dL (7.8-10.44); Carbon Dioxide 23 mmol/L (22-29); Chloride 105 mmol/L (98-107); Estimated GFR-MDRD 82; Globulin 3.3 g/dL (2.4-3.5); Protein, Total 7.6 g/dL (6.0-8.3)
[2017-03-27 20:28] LABS: Troponin I 0.027 ng/mL (< 0.028)
== END 2017-03-27 21:50 | disposition home or self-care (01) ==
LOC: ERS 19:29
DX: F14.10 Cocaine abuse, uncomplicated (principal); J45.909 Unspecified asthma, uncomplicated; F17.210 Nicotine dependence, cigarettes, uncomplicated
CPT/HCPCS: 36415; 71010; 80053; 82553; 83880; 84484; 85025; 93005; 94760; 99406

== ENCOUNTER 2017-04-05 23:20 | Observation (INO) | payer BC ==
[2017-04-06 01:14] LABS: CKMB 5.9 ng/mL (0-6.6); Troponin I 0.042 ng/mL (< 0.028)
[2017-04-06 01:35] LABS: #Basophils 0.1 thou/uL (0.0-0.2); #Eosinphils 0.2 thou/uL (0.0-0.7); #Monocytes 0.8 thou/uL (0.11-0.59); #Neutrophils 4.6 thou/uL (1.40-6.50); %Basophils 1.4 % (0.0-1.0); %Eosinophils 1.8 % (0.0-10.0); %Lymphocytes 34.7 % (21.0-51.0); %Monocytes 9.1 % (0.0-10.0); Hemoglobin 14.9 g/dL (14.0-18.0); Mean Corpuscular HGB CONC 33.1 g/dL (32.0-36.0); Mean Corpuscular Hemoglobin 30.2 pg (27.0-31.0); Mean Platelet Volume 6.7 fL (7.4-10.4); Platelet Count 309 thou/uL (130-400); Red Blood Cell (RBC) Count 4.93 mill/uL (4.70-6.10); White Blood Cell (WBC) Count 8.7 thou/uL (4.8-10.8)
[2017-04-06 01:46] LABS: ALT (SGPT) 24 U/L (8-55); AST (SGOT) 22 U/L (5-34); Albumin 4.3 g/dL (3.5-5.0); Alkaline Phosphatase 54 U/L (40-150); Anion Gap 13 mmol/L (10-20); BUN (Urea Nitrogen) 7 mg/dL (8.9-20.6); Bilirubin, Total 0.5 mg/dL (0.2-1.2); Calc. Creatinine Clearance 0 mL/min (70-130); Calcium 9.4 mg/dL (7.8-10.44); Carbon Dioxide 22 mmol/L (22-29); Chloride 107 mmol/L (98-107); Estimated GFR-MDRD 80; Globulin 2.9 g/dL (2.4-3.5); Glucose 89 mg/dL (70-105); Potassium 4.2 mmol/L (3.5-5.1); Protein, Total 7.2 g/dL (6.0-8.3); Sodium 138 mmol/L (136-145)
[2017-04-06] MEDS ORDERED: Ondansetron HCl/PF 4 MG/2 ML Vial IVP PRN (02:34)
[2017-04-06] MEDS ORDERED: Ondansetron ODT 4 MG TAB SL PRN (02:34)
[2017-04-06] MEDS: Sodium Chloride 0.9% 1,000 ML IV SCH ×2 (02:48→10:50)
[2017-04-06 02:58] VITALS: BMI 29.0
[2017-04-06 05:03] LABS: Troponin I 0.031 ng/mL (< 0.028)
[2017-04-06 07:38] LABS: Troponin I 0.027 ng/mL (< 0.028)
--- NOTE | 2017-04-06 08:41 | RAD ---
CHEST ONE VIEW: HISTORY: Chest pain. COMPARISON: 03/27/2017 FINDINGS: Normal cardiac silhouette. The lungs and pleural spaces are clear. No pneumothorax or osseous abnor malities. IMPRESSION: No significant interval change. No acute cardiopulmonary process. POS: [facility]
[2017-04-06] MEDS ORDERED: Acetaminophen 325 MG TAB PO PRN (08:49)
[2017-04-06] MEDS ORDERED: HYDROcodone/Acetaminophen 5/325 mg Tablet PO PRN (08:49)
[2017-04-06] MEDS ORDERED: Carvedilol 3.125 MG TAB PO SCH (09:00)
[2017-04-06] MEDS ORDERED: Aspirin 325 MG TAB PO SCH (09:00)
[2017-04-06] MEDS ORDERED: Enoxaparin Sodium 80 MG/0.8 ML SYRINGE SC SCH (09:00)
[2017-04-06] MEDS ORDERED: Metoprolol Tartrate 25 MG TAB PO SCH (09:00)
[2017-04-06] MEDS ORDERED: Enoxaparin Sodium 120 MG/0.8 ML SYRINGE SC SCH (09:00)
[2017-04-06 09:28] LABS: Cardiac Risk 4.3 (Less than 4.5)
[2017-04-06 11:31] LABS: Amphetamine Not Detected (NotDetected); Barbiturates Screen Not Detected (NotDetected); Benzodiazepine Screen Not Detected (NotDetected); Cocaine Metabolite Screen Detected (NotDetected); Medtox Control Line Valid? VALID (VALID); Medtox Reader # READER 1; Methadone Not Detected (NotDetected); Methamphetamine Not Detected (NotDetected); Opiate Screen Not Detected (NotDetected); Oxycodone Screen Not Detected (NotDetected); Phencyclidine (PCP) Not Detected (NotDetected); THC/Cannabinoid Screen Not Detected (NotDetected); Tricyclic Screen Not Detected (NotDetected)
[2017-04-06] MEDS: Nitroglycerin 2% Ointment 1 INCH/1 GM Packet TOP SCH ×2 (15:08→21:05)
--- NOTE | 2017-04-06 17:34 | HP ---
DATE OF SERVICE: 04/06/2017 CHIEF COMPLAINT: Chest pain. HISTORY OF PRESENT ILLNESS: This is 37-year-old young white male with known previous history of coca ine abuse in the past. The patient was in usual state of health until this morning. He noted to hav e severe chest pain associated with shortness of breath as he had taken cocaine puffs. The patient p resented to the ER complaining of chest pain and urine drug screen was done today, but he accepted th at he did take cocaine. The patient was closely monitored. Initially, he had elevated troponin of 0 .41, which was trending down. His chest pain resolved overnight. The patient was started on aspirin and Lovenox. Cardiology was consulted. Dr. Awan who did 2D echo this morning and is pending at t his time. The patient is not on any home medication. PAST MEDICAL HISTORY: 1. History of renal cancer status post partial nephrectomy in 2015. 2. Chronic low back pain. 3. History of cardiac murmur, history of asthma. PAST SURGICAL HISTORY: 1. Tonsillectomy. 2. Partial right nephrectomy. ALLERGIES: No known drug allergies. HOME MEDICATION: Albuterol inhaler as needed. SOCIAL HISTORY: The patient lives at home with his family. He has a strong history of cocaine abuse . The last one, he had was in December. He also drinks occasionally and smoke electronic cigarette s. FAMILY HISTORY: Negative for any premature coronary artery disease. REVIEW OF SYSTEMS: The following complete review of systems was negative, unless otherwise mentioned in the HPI or below: Constitutional: Weight loss or gain, sense of well-being, ability to conduct usual activities, exerc ise tolerance. Skin/Breast: Rash, itching, changes in hair growth or loss, nail changes, breast lumps, tenderness, swelling, nipple discharge. Eyes: Vision, double vision, tearing, blind spots, pain. ENT/Mouth: Headaches (location, time of onset, duration, precipitating factors), vertigo, lightheade dness, injury. Vision, double vision, tearing, blind spots, pain, nose bleeding, colds, obstruction, discharge, dental difficulties, gingival bleeding, dentures, neck stiffness, pain, tenderness, masses in thyroid or other areas Cardiovascular: Precordial pain, substernal distress, palpitations, syncope, dyspnea on exertion, or thopnea, nocturnal paroxysmal dyspnea, edema, cyanosis, hypertension, heart murmurs, varicosities, ph lebitis, claudication. Respiratory: Pain, shortness of breath, wheezing, stridor, cough, hemoptysis, fever or night sweats Gastrointestinal: Poor appetite, dysphagia, indigestion, abdominal pain, heartburn, eructation, naus ea, vomiting, hematemesis, jaundice, constipation, or diarrhea, abnormal stools (herber-colored, tarry, bloody, greasy, foul smelling), flatulence, hemorrhoids, recent changes in bowel habits. Genitourinary: Urgency, frequency, dysuria, nocturia, hematuria, polyuria, oliguria, unusual (or ravin nge in) color of urine, stones, hesitancy, change in size of stream, dribbling, acute retention or in continence, libido, potency. Musculoskeletal: Pain, swelling, redness or heat of muscles or joints, limitation, of motion, muscul ar weakness, atrophy, cramps. Neurologic/Psychiatric: Convulsions, paralyses, tremor, incoordination, paraesthesias, difficulties with memory of speech, sensory or motor disturbances, or muscular coordination (ataxia, tremor), emot ional problems, anxiety, depression, previous psychiatric care, unusual perceptions, hallucinations. Allergy/Immunologic: Skin rash, anemia, bleeding tendency, polydipsia, polyuria, intolerance to heat or cold. PHYSICAL EXAMINATION: VITAL SIGNS: Blood pressure is 116/59, heart rate is 61, respiratory rate is 20, and saturation 92% on room air. GENERAL: The patient is seen lying in the bed supine, does not appear to be in acute distress. CARDIOVASCULAR: S1, S2 normal. HEENT: Atraumatic, normocephalic, PERRLA. Extraocular movements were intact. Oral mucosa pink and m oist. CARDIOVASCULAR: S1 and S2 normal. No murmurs, rubs or gallops. LUNGS: Bilateral air entry was equal. No wheezing, no crackles. ABDOMEN: Soft, nontender, no guarding, no rebound tenderness. Bowel sounds are present. EXTREMITIES: Normal. MUSCULOSKELETAL: No calf tenderness. No pedal edema. No joint tenderness, no joint swelling. SKIN: No cyanosis, no edema, no rash, no pallor. CENTRAL NERVOUS SYSTEM: Cranial nerve examination II-XII intact. No focal deficits were noted. LABORATORY DATA: WBC is 8.7, hemoglobin is 14.9, and hematocrit is 44.9. Sodium 138, potassium 4.2, chloride 107, bicarbonate is 22, BUN is 7, creatinine is 1.06. Initial tr oponin 0.042, 0.031, 0.027. ASSESSMENT AND PLAN: 1. [id number] elevation myocardial infarction. 2. Demand ischemia. 3. Cocaine abuse. 4. Moderate dehydration. PLAN: 1. Plan is to continue to monitor this patient's serial troponins and we will consult and unexplaina ble about consulted Cardiology. Dr. Awan planned to do a 2D echo which is pending at this time. W e will continue with aspirin and avoid beta evon because of the cocaine use. We will start the pa tient on calcium channel blockers. 2. Patient has elevated troponins, most likely this could be demand ischemia from cocaine use. We w ill start the patient on Lovenox 1 mg/kg twice a day. The patient would not be undergoing stress liza t as this would not benefit or it could harm the patient because of the already stressed heart. 3. The patient has moderate dehydration. We will closely monitor. We will continue the patient on IV fluids. 4. Deep venous thrombosis prophylaxis, on Lovenox. I spent 65 minutes on this patient.
--- NOTE | 2017-04-06 19:22 | PRG ---
DATE OF SERVICE: 04/06/2017. SUBJECTIVE: Mr. Stephens was readmitted to the hospital after having chest pain after having a ma rked increase in his cocaine consumption. He said he has got to the point where he uses cocaine on a daily basis, but used about three times than what he normally uses yesterday. The patient was in the hospital with a similar situation in December and he was seen by Dr. Chavarria at that point. The patient is currently resting comfortably, pain free. OBJECTIVE: VITAL SIGNS: Blood pressure is variable, 116/59 and another 155/112, pulse 62. LUNGS: Clear. CARDIAC: Normal S1 and S2. ABDOMEN: Soft, nontender. EXTREMITIES: No edema. LABORATORY DATA: Patient's peak troponin level 0.042. EKG is unremarkable. LDL cholesterol is 117. ASSESSMENT: Cocaine toxicity/cocaine addiction manifesting with by chest pain similar to admission i n December and seen by Dr. Chavarria at that point. PLAN: Again, stressed the critical importance of absence from cocaine. He said he would like to go to rehab, but could not afford to do so, it is too expensive. He understands that the cocaine is ext remely toxic and could result in his ultimately if he continues. The patient can be released t o home. He wishes to spend the night. He says that if he thinks if he goes home, then he will resum e the cocaine and he needs to try to get another day to try to prepare himself as best he can. He un derstands rehab is the best option, but he states financially this is not an option at this point. W e will sign off. Please consultation if needed.
[2017-04-06] MEDS ORDERED: Enoxaparin Sodium 100 MG/ML SYRINGE SC SCH (21:00)
[2017-04-07] MEDS: Nitroglycerin 2% Ointment 1 INCH/1 GM Packet TOP SCH (04:47)
[2017-04-07 08:03] VITALS: TEMP 98.4
[2017-04-07 11:24] VITALS: BP 134/74
--- NOTE | 2017-04-07 12:58 | DIS ---
DATE OF ADMISSION: 04/06/2017 DATE OF DISCHARGE: 04/07/2017 ADMITTING DIAGNOSES: Acute cocaine abuse with chest pain. DISCHARGE DIAGNOSES: Acute demand ischemia secondary to cocaine abuse. SECONDARY DIAGNOSES: 1. Active smoker. 2. Moderate dehydration. 3. Elevated troponins. Consultants involved in the care is Dr. Awan. PROCEDURES: Done during this admission are 2D echo with a good ejection fraction of 60%. HISTORY OF PRESENT ILLNESS AND HOSPITAL COURSE: In brief, this is a 37-year-old young white male wit h a known history of chronic cocaine abuse and history of alcohol and active smoking. The patient cole d a very close observation with serial troponins, which were trending down and his chest pain was morales e by the time he was in the hospital. He never had any recurrent chest pains. The patient is counse led thoroughly about avoiding cocaine and he agreed to follow up with Dr. Gonzalo Pitt who would be helping him with smoking cessation and drug abuse problem. Discussed with Cardiology who did a 2D echo and so the patient would not need a nuclear stress test at this point as his recent echo was al so normal and there was no wall motion observed on this echo. The patient agreed to the plan and he would want to avoid any cocaine use in the future. All the instructions were given to the patient. The patient was requesting for Wellbutrin for smoking cessation. The patient is given the prescripti on for that and advised to follow up with Dr. Pitt. Patient denies having any chest pain at this time. No nausea, no vomiting, no diarrhea, no constipation. PHYSICAL EXAMINATION: VITAL SIGNS: On date of discharge, blood pressures are 117/53, heart rate is 63, respiration is 18, saturation is 93%. GENERAL: The patient is moderately built, moderately nourished, does not appear to be in any acute d istress. CARDIOVASCULAR: S1, S2 normal. No murmurs, rubs or gallops. LUNGS: Bilateral air entry was equal. No wheezing, no crackles. ABDOMEN: Soft, nontender, no guarding, no rebound tenderness. Bowel sounds normal. MUSCULOSKELETAL: No calf tenderness. No pedal edema. No joint tenderness, no joint swelling. SKIN: No cyanosis, no erythema, no rash, no pallor. DISCHARGE MEDICATIONS: 1. The patient will be continued on his Albuterol inhaler as needed. 2. The patient will be going home with Wellbutrin 150 mg once daily for 3 days and then increasing t o 150 mg twice a day for 30 days and then will be followed up with his primary care physician to exte nd this medication. DISCHARGE INSTRUCTIONS: 1. Continue activity as tolerated. 2. Advised to follow up with Dr. Gonzalo Pitt in 2-3 days for drug rehabilitation. 3. The patient will follow up with the primary care physician in 1-2 weeks. 4. The patient is instructed to avoid drugs and avoid smoking and spent more than 15-20 minutes at t he time of discharge only for smoking cessation. 5. Continue heart healthy diet. I spent 35 minutes with this patient on the day of discharge.
--- NOTE | 2017-04-07 13:37 | EKG ---
Test Reason : Blood Pressure : / mmHG Vent. Rate : 072 BPM Atrial Rate : 072 BPM P-R Int : 172 ms QRS Dur : 084 ms QT Int : 470 ms P-R-T Axes : 048 019 014 degrees QTc Int : 514 ms Normal sinus rhythm Possible Left atrial enlargement Abnormal ECG Confirmed by ADILSON DURHAM ([id number]), digital editor GABRIEL HARRIS ([id number] on 04/07/2017 1:36:35 PM Referred By: Confirmed By:ADILSON DURHAM
--- NOTE | 2017-04-10 07:31 | EKG ---
Test Reason : ROUTINE Blood Pressure : / mmHG Vent. Rate : 066 BPM Atrial Rate : 066 BPM P-R Int : 162 ms QRS Dur : 084 ms QT Int : 450 ms P-R-T Axes : 060 047 021 degrees QTc Int : 471 ms Normal sinus rhythm Normal ECG When compared with ECG of 06-APR-2017 01:38, No significant change was found Confirmed by DR. Cornelius MADERA ([id number]) on 04/10/2017 7:30:56 AM Referred By: BETH Confirmed By:DR. Cornelius MADERA
--- NOTE | 2017-04-10 07:35 | EKG ---
Test Reason : ROUTINE Blood Pressure : / mmHG Vent. Rate : 068 BPM Atrial Rate : 068 BPM P-R Int : 162 ms QRS Dur : 084 ms QT Int : 438 ms P-R-T Axes : 060 053 011 degrees QTc Int : 465 ms Normal sinus rhythm Possible Left atrial enlargement Early repolarization variant When compared with ECG of 06-APR-2017 21:29, (Unconfirmed) No significant change was found Confirmed by DR. Cornelius MADERA ([id number]) on 04/10/2017 7:35:11 AM Referred By: BETH Confirmed By:DR. Cornelius MADERA
== END 2017-04-07 12:24 | disposition home or self-care (01) ==
LOC: ERS 23:20 → 2SW 04-06 02:25
PROVIDERS: ADMIT Family Medicine; ATTEND Family Medicine
DX: I24.8 Other forms of acute ischemic heart disease (principal); F14.20 Cocaine dependence, uncomplicated; E86.0 Dehydration; R79.89 Other specified abnormal findings of blood chemistry; G89.29 Other chronic pain; J45.909 Unspecified asthma, uncomplicated; F17.290 Nicotine dependence, other tobacco product, uncomplicated; Z79.899 Other long term (current) drug therapy; Z72.89 Other problems related to lifestyle; Z90.5 Acquired absence of kidney; Z90.89 Acquired absence of other organs; Z85.53 Personal history of malignant neoplasm of renal pelvis
CPT/HCPCS: 36415; 71010; 80053; 80061; 80306; 82550; 82553; 83880; 84484; 85025; 93005; 93010; 93306; 94640; 94760; 96360; 96361; 96372; A4216; G0378; J1650; J7620

== ENCOUNTER 2018-10-18 05:01 | Emergency (ER) | payer BC ==
[2018-10-18] MEDS ORDERED: Ondansetron PF 4 MG/2 ML Vial ONE (05:05)
[2018-10-18] MEDS ORDERED: Activated Charcoal/Sorbitol 25 GM/120 ML TUBE ONE ×2 (05:06→05:11)
[2018-10-18 05:18] LABS: #Basophils 0.1 thou/uL (0.0-0.2); #Lymphocytes 2.7 thou/uL (1.20-3.40); #Monocytes 0.9 thou/uL (0.11-0.59); #Neutrophils 8.5 thou/uL (1.40-6.50); %Basophils 0.6 % (0.0-1.0); %Eosinophils 0.2 % (0.0-10.0); %Lymphocytes 22.4 % (21.0-51.0); %Monocytes 7.4 % (0.0-10.0); %Neutrophils 69.5 % (42.0-75.0); Hemoglobin 14.3 g/dL (14.0-18.0); Mean Corpuscular HGB CONC 32.4 g/dL (32.0-36.0); Mean Corpuscular Hemoglobin 28.6 pg (27.0-31.0); Mean Corpuscular Volume 88.5 fL (78.0-98.0); Mean Platelet Volume 6.7 fL (7.4-10.4); Platelet Count 353 thou/uL (130-400); RBC Distribution Width 12.1 % (11.5-14.5); Red Blood Cell (RBC) Count 4.99 mill/uL (4.70-6.10); White Blood Cell (WBC) Count 12.2 thou/uL (4.8-10.8)
[2018-10-18 05:42] LABS: ALT (SGPT) 46 U/L (8-55); AST (SGOT) 33 U/L (5-34); Acetaminophen Less than 6.0 mcg/mL (10.0-30.0); Albumin 4.7 g/dL (3.5-5.0); Alcohol 95 mg/dL (Less than 10); Alkaline Phosphatase 61 U/L (40-150); Anion Gap 15 mmol/L (10-20); BUN (Urea Nitrogen) 12 mg/dL (8.9-20.6); Bilirubin, Total 0.4 mg/dL (0.2-1.2); CK (CPK) 354 U/L (30-200); Calc. Creatinine Clearance 0 mL/min (70-130); Carbon Dioxide 21 mmol/L (22-29); Chloride 107 mmol/L (98-107); Estimated GFR-MDRD 59; Globulin 3.3 g/dL (2.4-3.5); Glucose 139 mg/dL (70-105); Potassium 3.8 mmol/L (3.5-5.1); Salicylate Less than 8.0 mg/dL (15.0-30.0); Sodium 139 mmol/L (136-145)
[2018-10-18] MEDS ORDERED: Albuterol Sulfate 2.5 mg/0.5 ml Neb ONE ×2 (06:02→06:03)
[2018-10-18 07:03] LABS: Amphetamine Not Detected (NotDetected); Barbiturates Screen Not Detected (NotDetected); Benzodiazepine Screen Detected (NotDetected); Cocaine Metabolite Screen Detected (NotDetected); Medtox Control Line Valid? VALID (VALID); Medtox Reader # READER 1; Methadone Not Detected (NotDetected); Methamphetamine Not Detected (NotDetected); Opiate Screen Not Detected (NotDetected); Oxycodone Screen Not Detected (NotDetected); Phencyclidine (PCP) Not Detected (NotDetected); THC/Cannabinoid Screen Not Detected (NotDetected); Tricyclic Screen Not Detected (NotDetected)
--- NOTE | 2018-10-18 07:47 | RAD ---
PORTABLE CHEST: Date: 10/18/18 COMPARISON: 04/06/17. HISTORY: Drug overdose. FINDINGS: Heart size appears slightly enlarged. Mediastinal structures are unremarkable. Lungs are clear of inf iltrates. The film is of poor inspiration. IMPRESSION: Borderline heart size, somewhat difficult to assess due to portable technique and poor inspiration. POS: [facility]
== END 2018-10-18 11:11 | disposition home or self-care (01) ==
LOC: ERS 05:01
DX: F13.10 Sedative, hypnotic or anxiolytic abuse, uncomplicated (principal); J45.909 Unspecified asthma, uncomplicated; F17.210 Nicotine dependence, cigarettes, uncomplicated; Z79.899 Other long term (current) drug therapy
CPT/HCPCS: 36415; 71045; 80053; 80306; 80307; 82550; 84443; 85025; 93005; 94640; 96361; 96374; J2405; J7611

== ENCOUNTER 2019-04-04 20:05 | Emergency (ER) | payer BC | END 2019-04-04 22:30 | disposition home or self-care (01) | LOC: ERS 20:05 | DX: F10.129 Alcohol abuse with intoxication, unspecified (principal); J45.909 Unspecified asthma, uncomplicated; F17.290 Nicotine dependence, other tobacco product, uncomplicated; F43.10 Post-traumatic stress disorder, unspecified; Z79.84 Long term (current) use of oral hypoglycemic drugs | CPT/HCPCS: 96360 ==

== ENCOUNTER 2019-08-13 18:31 | Emergency (ER) | payer BC, SELFPAY ==
[2019-08-13] MEDS ORDERED: Bacitracin 1 PK ONE (19:07)
== END 2019-08-13 19:15 | disposition home or self-care (01) ==
LOC: ERS 18:31
DX: Z48.02 Encounter for removal of sutures (principal); J45.909 Unspecified asthma, uncomplicated; F17.290 Nicotine dependence, other tobacco product, uncomplicated; Z79.84 Long term (current) use of oral hypoglycemic drugs; Z79.899 Other long term (current) drug therapy

== ENCOUNTER 2021-01-06 15:36 | Emergency (ER) | payer SELFPAY | END 2021-01-06 17:10 | disposition home or self-care (01) | LOC: ERS 15:36 | DX: F10.129 Alcohol abuse with intoxication, unspecified (principal); F19.10 Other psychoactive substance abuse, uncomplicated; G89.29 Other chronic pain; M54.9 Dorsalgia, unspecified; E11.9 Type 2 diabetes mellitus without complications; J45.909 Unspecified asthma, uncomplicated; F17.210 Nicotine dependence, cigarettes, uncomplicated | CPT/HCPCS: 99284 ==

== ENCOUNTER 2021-02-05 13:31 | Emergency (ER) | payer SELFPAY ==
[2021-02-05 14:10] LABS: #Basophils 0.1 thou/uL (0.0-0.2); #Eosinphils 0.1 thou/uL (0.0-0.7); #Lymphocytes 3.6 thou/uL (1.20-3.40); #Monocytes 0.9 thou/uL (0.11-0.59); #Neutrophils 6.4 thou/uL (1.40-6.50); %Basophils 0.7 % (0.0-1.0); %Eosinophils 0.9 % (0.0-10.0); %Lymphocytes 32.8 % (21.0-51.0); %Monocytes 8.4 % (0.0-10.0); %Neutrophils 57.3 % (42.0-75.0); Hemoglobin 15.8 g/dL (14.0-18.0); Mean Corpuscular HGB CONC 33.7 g/dL (32.0-36.0); Mean Corpuscular Hemoglobin 30.5 pg (27.0-31.0); Mean Corpuscular Volume 90.6 fL (78.0-98.0); Mean Platelet Volume 6.8 fL (7.4-10.4); Platelet Count 275 thou/uL (130-400); RBC Distribution Width 12.6 % (11.5-14.5); Red Blood Cell (RBC) Count 5.17 mill/uL (4.70-6.10); White Blood Cell (WBC) Count 11.1 thou/uL (4.8-10.8)
[2021-02-05 14:32] LABS: ALT (SGPT) 38 U/L (8-55); AST (SGOT) 29 U/L (5-34); Acetaminophen Less than 6.0 mcg/mL (10.0-30.0); Albumin 4.5 g/dL (3.5-5.0); Alcohol 247 mg/dL (Less than 10); Alkaline Phosphatase 45 U/L (40-110); Anion Gap 20 mmol/L (10-20); BUN (Urea Nitrogen) 11 mg/dL (8.9-20.6); Bilirubin, Total 0.5 mg/dL (0.2-1.2); Calc. Creatinine Clearance 0 mL/min (70-130); Calcium 9.6 mg/dL (7.8-10.44); Carbon Dioxide 19 mmol/L (22-29); Chloride 104 mmol/L (98-107); Globulin 3.5 g/dL (2.4-3.5); Glucose 182 mg/dL (70-105); Potassium 3.5 mmol/L (3.5-5.1); Salicylate Less than 8.0 mg/dL (15.0-30.0); Sodium 139 mmol/L (136-145)
[2021-02-05 14:46] LABS: Amphetamine Not Detected (NotDetected); Barbiturates Screen Not Detected (NotDetected); Benzodiazepine Screen Not Detected (NotDetected); Cocaine Metabolite Screen Detected (NotDetected); Methadone Not Detected (NotDetected); Methamphetamine Not Detected (NotDetected); Opiate Screen Not Detected (NotDetected); Oxycodone Screen Not Detected (NotDetected); Phencyclidine (PCP) Not Detected (NotDetected); THC/Cannabinoid Screen Not Detected (NotDetected); Tricyclic Screen Not Detected (NotDetected)
== END 2021-02-05 15:25 | disposition home or self-care (01) ==
LOC: ERS 13:31
DX: F10.129 Alcohol abuse with intoxication, unspecified (principal); Y90.8 Blood alcohol level of 240 mg/100 ml or more; F14.20 Cocaine dependence, uncomplicated; E11.9 Type 2 diabetes mellitus without complications
CPT/HCPCS: 36415; 80053; 80306; 80307; 85025; 93005

== ENCOUNTER 2021-03-19 12:03 | Emergency (ER) | payer SELFPAY, OTHER ==
[~2021-03-19 12:03] MED LIST: Iopamidol-370 76% 500 ML 1 ML ONE
[2021-03-19] MEDS ORDERED: Midazolam HCl 2 mg/2 ml Vial ONE (12:27)
[2021-03-19] MEDS ORDERED: Ketamine 50 MG/ML (10ML VIAL) ONE (12:34)
[2021-03-19] MEDS ORDERED: Lorazepam 2 MG/ML VIAL ONE (13:30)
[2021-03-19 14:03] LABS: Bilirubin Negative (Negative); Blood, Urine Negative (Negative); Clarity Clear (Clear); Glucose, Urine (Dipstick) Normal (Negative); Ketone, Urine Negative (Negative); Leukocyte Negative Leu/uL (Negative); Nitrite Negative (Negative); Protein, Urine (Dipstick) Negative (Neg-Trace); Specific Gravity, Urine 1.014 (1.002-1.036); Urobilinogen Normal mg/dL (Less than 2); pH, Urine 5.5 (5.0-9.0)
[2021-03-19 14:12] LABS: Amphetamine Not Detected (NotDetected); Barbiturates Screen Not Detected (NotDetected); Benzodiazepine Screen Not Detected (NotDetected); Cocaine Metabolite Screen Detected (NotDetected); Methadone Not Detected (NotDetected); Methamphetamine Not Detected (NotDetected); Opiate Screen Not Detected (NotDetected); Oxycodone Screen Not Detected (NotDetected); Phencyclidine (PCP) Not Detected (NotDetected); THC/Cannabinoid Screen Not Detected (NotDetected); Tricyclic Screen Not Detected (NotDetected)
[2021-03-19 14:16] LABS: #Basophils 0.1 thou/uL (0.0-0.2); #Eosinphils 0.1 thou/uL (0.0-0.7); #Lymphocytes 2.9 thou/uL (1.20-3.40); #Monocytes 0.9 thou/uL (0.11-0.59); #Neutrophils 6.6 thou/uL (1.40-6.50); %Basophils 0.8 % (0.0-1.0); %Eosinophils 0.7 % (0.0-10.0); %Lymphocytes 27.5 % (21.0-51.0); %Monocytes 8.6 % (0.0-10.0); %Neutrophils 62.3 % (42.0-75.0); Hemoglobin 14.7 g/dL (14.0-18.0); Mean Corpuscular HGB CONC 33.5 g/dL (32.0-36.0); Mean Corpuscular Hemoglobin 30.3 pg (27.0-31.0); Mean Corpuscular Volume 90.6 fL (78.0-98.0); Mean Platelet Volume 7.2 fL (7.4-10.4); Platelet Count 293 thou/uL (130-400); RBC Distribution Width 12.9 % (11.5-14.5); Red Blood Cell (RBC) Count 4.84 mill/uL (4.70-6.10); White Blood Cell (WBC) Count 10.6 thou/uL (4.8-10.8)
[2021-03-19 14:30] LABS: ALT (SGPT) 26 U/L (8-55); AST (SGOT) 22 U/L (5-34); Acetaminophen Less than 6.0 mcg/mL (10.0-30.0); Albumin 4.1 g/dL (3.5-5.0); Alcohol 209 mg/dL (Less than 10); Alkaline Phosphatase 49 U/L (40-110); Anion Gap 18 mmol/L (10-20); BUN (Urea Nitrogen) 10 mg/dL (8.9-20.6); Bilirubin, Total 0.5 mg/dL (0.2-1.2); Calc. Creatinine Clearance 0 mL/min (70-130); Calcium 9.3 mg/dL (7.8-10.44); Carbon Dioxide 20 mmol/L (22-29); Chloride 100 mmol/L (98-107); Globulin 3.2 g/dL (2.4-3.5); Glucose 237 mg/dL (70-105); Potassium 3.3 mmol/L (3.5-5.1); Protein, Total 7.3 g/dL (6.0-8.3); Salicylate Less than 8.0 mg/dL (15.0-30.0); Sodium 135 mmol/L (136-145)
== END 2021-03-19 16:35 | disposition home or self-care (01) ==
LOC: ERS 12:03
DX: M54.50 Low back pain, unspecified (principal); F10.129 Alcohol abuse with intoxication, unspecified; Y90.2 Blood alcohol level of 40-59 mg/100 ml; F14.129 Cocaine abuse with intoxication, unspecified; W11.XXXA Fall on and from ladder, initial encounter; E11.9 Type 2 diabetes mellitus without complications; F17.290 Nicotine dependence, other tobacco product, uncomplicated
CPT/HCPCS: 70450; 71260; 72125; 74177; 80053; 80306; 80307; 81003; 85025; 96374; 96375; J2060; J2250; Q9967

== ENCOUNTER 2021-04-21 17:32 | Emergency (ER) | payer SELFPAY ==
[2021-04-21] MEDS ORDERED: Lorazepam 2 MG/ML VIAL ONE (18:04)
[2021-04-21] MEDS ORDERED: Haloperidol Lactate 5 MG/ML VIAL ONE (18:04)
== END 2021-04-21 19:50 ==
LOC: ERS 17:32
DX: F10.129 Alcohol abuse with intoxication, unspecified (principal); R45.1 Restlessness and agitation
CPT/HCPCS: J1630; J2060